=== PATIENT | male | born 1955 | race Caucasian/White ===

== ENCOUNTER 2023-02-04 13:37 | Emergency (ER) | payer OTHER ==
[~2023-02-04] VITALS: Ht 162.6 cm; Wt 71.7 kg
[2023-02-04 14:18] VITALS: BP 179/104; PULSE 74; RESP 18; TEMP 98.2; O2SAT 100
[2023-02-04] MEDS ORDERED: ENALAPRILAT 2.5 MG/2 ML VIAL IVP ONE ×2 (14:55→15:35)
[2023-02-04 15:34] LABS: BASOPHILS % (AUTO) 0.3 % (0.0-2.0); EOSINOPHILS # (AUTO) 0.1 K/uL (0-0.4); EOSINOPHILS % (AUTO) 0.8 % (0.0-4.0); HEMATOCRIT 41.8 % (36-52); HEMOGLOBIN 14.6 g/dL (12.0-18.0); LYMPHOCYTES # (AUTO) 1.1 K/uL (2.0-11.5); LYMPHOCYTES % (AUTO) 13.3 % (20.5-51.1); MEAN CORPUSCULAR HEMOGLOBIN 33 pg (27-31); MEAN CORPUSCULAR HGB CONC 35 g/dL (33-37); MONOCYTES # (AUTO) 0.8 K/uL (0.8-1.0); MONOCYTES % (AUTO) 9.4 % (1.7-9.3); NEUTROPHILS # (AUTO) 6.2 K/uL (1.8-7.7); NEUTROPHILS % (AUTO) 76.2 % (42.2-75.2); PLATELET COUNT (AUTO) 308 K/uL (140-450); RED BLOOD CELL COUNT(AUTO) 4.49 MIL/uL (4.20-6.10); RED CELL DISTRIBUTION WIDTH 13.5 % (11.6-13.7); WHITE BLOOD COUNT (AUTO) 8.1 K/uL (4.8-10.8)
[2023-02-04 15:44] LABS: ANION GAP 10.1 (8-16); CALCIUM 9.1 mg/dL (8.5-10.1); CARBON DIOXIDE 29.2 mmol/L (21-32); CREATININE 0.9 mg/dL (0.6-1.3); POTASSIUM 3.3 mmol/L (3.5-5.1)
[2023-02-04] MEDS ORDERED: LABETALOL 20 MG/4 ML VIAL IVP ONE (16:00)
[2023-02-04 16:09] VITALS: BP 170/90; PULSE 60; RESP 19; TEMP 98.2; O2SAT 99
== END 2023-02-04 16:16 | disposition short-term general hospital (02) ==
LOC: EDSEX 13:37 → MED 13:37
DX: J18.9 Pneumonia, unspecified organism (principal); I61.8 Other nontraumatic intracerebral hemorrhage; Z79.899 Other long term (current) drug therapy
CPT/HCPCS: 36415; 70450; 71045; 80048; 82948; 84484; 85025; 86886; 86900; 86901; 93005; 96374; 96375; 96376; 99285; J3490